=== PATIENT | female | born 1970 | race Caucasian/White ===

== ENCOUNTER 2017-04-05 06:50 | Emergency (ER) | payer MEDICAID ==
[~2017-04-05] VITALS: Ht 152.4 cm; Wt 63.5 kg
[~2017-04-05 06:50] MED LIST: CIPR500T4 PO; METR250T2 PO
[2017-04-05 06:53] VITALS: BP 137/81
--- NOTE | 2017-04-05 07:34 | NUR ---
TO ER BED 4
--- NOTE | 2017-04-05 07:36 | NUR ---
Patient being evaluated by physician at bedside.
--- NOTE | 2017-04-05 07:43 | NUR ---
PATIENT PRESENTS TO ED WITH DIZZINESS, FATIQUE, WEAKNESS FOR A WEEK, NOSEBLEEDING, INTERMITENT H/A NO C/O H/A AT THIS TIME; DENIES N/V/D; SKIN IS PINK/WARM/DRY; AAOX4 WITH EVEN AND STEADY GAIT; LUNGS CLEAR BL; HR EVEN AND REGULAR; PT DENIES ANY FEVER, CP, SOB, OR COUGH AT THIS TIME; PATIENT STATES PAIN OF 0/10 AT THIS TIME; VSS; PATIENT POSITIONED FOR COMFORT; HOB ELEVATED; BEDRAILS UP X2; BED DOWN. ER MD MADE AWARE OF PT STATUS.
[2017-04-05 08:04] VITALS: BP 117/76
--- NOTE | 2017-04-05 08:04 | NUR ---
Patient discharged with v/s stable. Written and verbal after care instructions given and explained. Patient alert, oriented and verbalized understanding of instructions. Ambulatory with steady gait. All questions addressed prior to discharge. ID band removed. Patient advised to follow up with PMD. Rx of MOTRIN, PREDNISONE given. Patient educated on indication of medication including possible reaction and side effects. Opportunity to ask questions provided and answered.
== END 2017-04-05 08:04 | disposition home or self-care (01) ==
LOC: MED 06:50
DX: R42 Dizziness and giddiness (principal); R05 Cough; R10.30 Lower abdominal pain, unspecified; E11.9 Type 2 diabetes mellitus without complications
CPT/HCPCS: 81002; 81025; 82948; 99283

== ENCOUNTER 2017-06-04 16:31 | Emergency (ER) | payer MEDICAID ==
[~2017-06-04] VITALS: Ht 153.7 cm; Wt 73.5 kg
[2017-06-04 16:36] VITALS: BP 138/81
[2017-06-04 17:33] LABS: BASOPHILS # (AUTO) 0.1 K/uL (0.00-0.22); BASOPHILS % (AUTO) 1.2 % (0.0-2.0); EOSINOPHILS # (AUTO) 0.2 K/uL (0-0.4); EOSINOPHILS % (AUTO) 3.2 % (0.0-4.0); HEMATOCRIT 36.3 % (36-48); HEMOGLOBIN 11.8 g/dL (12.0-16.0); LYMPHOCYTES # (AUTO) 1.9 K/uL (2.5-16.5); MEAN CORPUSCULAR HEMOGLOBIN 25 pg (27-31); MEAN CORPUSCULAR HGB CONC 33 g/dL (33-37); MEAN CORPUSCULAR VOLUME 78 fL (80-94); MONOCYTES # (AUTO) 0.4 K/uL (0.8-1.0); MONOCYTES % (AUTO) 6.2 % (1.7-9.3); NEUTROPHILS # (AUTO) 4.4 K/uL (1.8-7.7); NEUTROPHILS % (AUTO) 62.4 % (42.2-75.2); PLATELET COUNT (AUTO) 254 K/uL (140-450); RED BLOOD CELL COUNT(AUTO) 4.67 MIL/uL (4.20-5.40); RED CELL DISTRIBUTION WIDTH 15.9 % (11.6-13.7)
[2017-06-04 17:49] LABS: CALCIUM 8.5 mg/dL (8.5-10.1); CARBON DIOXIDE 25.6 mmol/L (21-32); CREATININE 0.7 mg/dL (0.6-1.3); POTASSIUM 3.6 mmol/L (3.5-5.1)
[2017-06-04 17:56] LABS: ALBUMIN 3.1 g/dL (3.4-5.0); TOTAL BILIRUBIN 0.3 mg/dL (0.0-1.0); TOTAL PROTEIN, SERUM 6.6 g/dL (6.4-8.2)
--- NOTE | 2017-06-04 19:20 | NUR ---
Patient ambulated to bed 4. RN evaluating patient at bedside.
--- NOTE | 2017-06-04 19:40 | NUR ---
PATIENT PRESENTS TO ED WITH C/O CONSTANT SLEEPINESS AND DIARRHEA X 2 WEEKS . PT DENIES N/V; SKIN IS PINK/WARM/DRY; AAOX4 WITH EVEN AND STEADY GAIT; LUNGS CLEAR BL; HR EVEN AND REGULAR; PT DENIES ANY FEVER, CP, SOB, OR COUGH AT THIS TIME; PATIENT STATES PAIN OF 0/10 AT THIS TIME; VSS; PATIENT POSITIONED FOR COMFORT; HOB ELEVATED; BEDRAILS UP X2; BED DOWN. ER MD MADE AWARE OF PT STATUS.
[2017-06-04] MEDS ORDERED: KETOROLAC 30 MG/ML VIAL IM ONE (20:00)
[2017-06-04 20:59] LABS: BILIRUBIN,URINE NEGATIVE (NEGATIVE); BLOOD, URINE NEGATIVE (NEGATIVE); COLOR,URINE YELLOW (YELLOW); LEUKOCYTE ESTERASE ,URINE NEGATIVE (NEGATIVE); NITRITE, URINE NEGATIVE (NEGATIVE); PROTEIN,URINE NEGATIVE (NEGATIVE); UGLUCOSE 3+ (NEGATIVE); UROBILINOGEN,URINE 0.2 EU/dL (0.2 - 1)
[2017-06-04 21:16] LABS: APPEARANCE,URINE HAZY (CLEAR); BACTERIA,URINE FEW /HPF (None Seen); RBC,URINE 0-5 /HPF (0-5); WBC,URINE 0-5 /HPF (0-5)
[2017-06-04 21:17] LABS: URINE AMORPHOUS URATE 2+ /HPF (None Seen)
--- NOTE | 2017-06-04 21:47 | NUR ---
Patient discharged with v/s stable. Written and verbal after care instructions given and explained. Patient alert, oriented and verbalized understanding of instructions. Ambulatory with steady gait. All questions addressed prior to discharge. ID band removed. Patient advised to follow up with PMD. Rx of NAPROSYN 500MG given. Patient educated on indication of medication including possible reaction and side effects. Opportunity to ask questions provided and answered.
[2017-06-04 21:48] VITALS: BP 122/79
== END 2017-06-04 21:48 | disposition home or self-care (01) ==
LOC: MED 16:31
DX: E11.65 Type 2 diabetes mellitus with hyperglycemia (principal)
CPT/HCPCS: 36415; 80053; 81001; 81025; 82948; 85025; 96372; 99284; J1885

== ENCOUNTER 2018-03-07 18:01 | Emergency (ER) | payer MEDICAID ==
[~2018-03-07] VITALS: Ht 152.4 cm; Wt 70.0 kg
[2018-03-07 18:33] VITALS: BP 151/84
--- NOTE | 2018-03-07 18:37 | NUR ---
PT AMBULATES BACK TO THE LOBBY
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
--- NOTE | 2018-03-07 20:56 | NUR ---
Dr. Blanco evaluating patient.
[2018-03-07] MEDS ORDERED: NACL 0.9% 1,000 ML IV ONE (21:00)
[2018-03-07] MEDS ORDERED: MECLIZINE 25 MG TAB PO ONE (21:05)
[2018-03-07 21:35] VITALS: BP 151/84
--- NOTE | 2018-03-07 21:35 | NUR ---
Patient discharged with v/s stable. Written and verbal after care instructions given and explained. Patient alert, oriented and verbalized understanding of instructions. Ambulatory with steady gait. All questions addressed prior to discharge. ID band removed. Patient advised to follow up with PMD. Rx of MECLAZINE given. Patient educated on indication of medication including possible reaction and side effects. Opportunity to ask questions provided and answered.
== END 2018-03-07 21:35 | disposition home or self-care (01) ==
LOC: MED 18:01
DX: R42 Dizziness and giddiness (principal); E11.9 Type 2 diabetes mellitus without complications
CPT/HCPCS: 82948; 99284; J7030; J8597